=== PATIENT | female | born 1950 | race Caucasian/White ===

== ENCOUNTER 2016-12-11 16:37 | Inpatient (IN) | payer OTHER ==
[~2016-12-11] VITALS: Ht 172.7 cm; Wt 64.9 kg
[2016-12-11 16:49] VITALS: BP_SYST 96
[2016-12-11] MEDS ORDERED: AMOXICILLIN/CLAVULANATE POTASSIUM 875 MG TABLET PO ONE (17:30)
[2016-12-11] MEDS ORDERED: BACITRACIN 1 GM OINT TP ONE ×2 (17:30→19:35)
[2016-12-11] MEDS ORDERED: MORPHINE 4 MG/ML INJ. SYRINGE IVP ONE (18:15)
[2016-12-11] MEDS ORDERED: AMPICILLIN SODIUM/SULBACTAM NA 3 GM in NS 100 ML IV ONE (18:15)
[2016-12-11] MEDS ORDERED: DIPHENHYDRAMINE INJ 50 MG/ML VIAL IVP ONE (18:15)
[2016-12-11 18:31] LABS: BASOPHILS % (AUTO) 0.8 % (0.0-2.0); EOSINOPHILS # (AUTO) 0.1 K/uL (0.0-0.4); EOSINOPHILS % (AUTO) 1.3 % (0.0-4.0); HEMATOCRIT 39.1 % (36-48); HEMOGLOBIN 12.8 g/dL (12.0-16.0); LYMPHOCYTES # (AUTO) 1.3 K/uL (1.0-5.5); LYMPHOCYTES % (AUTO) 25.2 % (20.5-51.5); MEAN CORPUSCULAR HEMOGLOBIN 31 pg (27-31); MEAN CORPUSCULAR HGB CONC 33 % (32-36); MEAN CORPUSCULAR VOLUME 96 fL (79.0-98.0); MONOCYTES # (AUTO) 0.4 K/uL (0.0-1.0); MONOCYTES % (AUTO) 7.6 % (1.7-9.3); NEUTROPHILS # (AUTO) 3.4 K/uL (1.8-7.7); NEUTROPHILS % (AUTO) 65.1 % (40.0-70.0); PLATELET COUNT (AUTO) 371 K/uL (130-430); RED BLOOD CELL COUNT(AUTO) 4.08 MIL/uL (4.2-6.2); RED CELL DISTRIBUTION WIDTH 12.8 % (9.0-15.0); WHITE BLOOD COUNT (AUTO) 5.2 K/uL (4.8-10.8)
[2016-12-11 18:43] LABS: CALCIUM 8.4 mg/dL (8.4-11.0); CREATININE 0.82 mg/dL (0.55-1.30); POTASSIUM 3.3 mmol/L (3.5-5.1)
[2016-12-11 18:48] LABS: ALBUMIN 3.5 g/dL (3.4-4.8); TOTAL BILIRUBIN 0.3 mg/dL (0.0-1.0)
[2016-12-11] MEDS ORDERED: ACETAMINOPHEN 325 MG TABLET PO PRN (19:15)
[2016-12-11] MEDS ORDERED: ONDANSETRON HCL 4 MG/2 ML VIAL IVP PRN (19:15)
[2016-12-11] MEDS ORDERED: AMPICILLIN SODIUM/SULBACTAM NA 3 GM VIAL ONE (19:16)
[2016-12-11] MEDS ORDERED: TEMA30CA5 PO (19:19)
[2016-12-11] MEDS ORDERED: ALPR2TAB2 PO (19:20)
[2016-12-11] MEDS ORDERED: amlodipine PO (19:20)
[2016-12-11 20:21] VITALS: BP_SYST 111
[2016-12-11 20:44] LABS: FREE T4 (FREE THYROXINE) 0.7 ng/dL (0.6-1.6); PHOSPHORUS 3.6 mg/dL (2.7-4.5); THYROID STIMULATING HORMONE 0.25 uIu/mL (0.34-4.82)
[2016-12-11] MEDS: DOCUSATE SODIUM 100 MG CAPSULE PO SCH (21:00)
[2016-12-11] MEDS ORDERED: BECL8.7A5 INH (21:12)
[2016-12-11] MEDS ORDERED: UMEC1BLS IH (21:12)
[2016-12-11] MEDS ORDERED: HYDR-1189 PO (21:12)
[2016-12-11] MEDS ORDERED: DIPH25CA83 PO (21:12)
[2016-12-11] MEDS ORDERED: ALPR1TAB2 PO (21:12)
[2016-12-11] MEDS ORDERED: ALBMDI INH (21:12)
[2016-12-11] MEDS ORDERED: GABA-531 PO (21:12)
[2016-12-11] MEDS ORDERED: NOR10 PO (21:12)
[2016-12-11] MEDS: NACL 0.9% 1,000 ML IV SCH (21:52)
[2016-12-11] MEDS: TEMAZEPAM 15 MG CAPSULE PO SCH (22:45)
[2016-12-12] MEDS ORDERED: TEMAZEPAM 15 MG CAPSULE PO ONE
[2016-12-12 00:38] VITALS: BP_SYST 105
[2016-12-12 05:01] VITALS: BP_SYST 143
[2016-12-12 06:51] LABS: ALBUMIN 3.2 g/dL (3.4-4.8); CALCIUM 8.2 mg/dL (8.4-11.0); CREATININE 0.85 mg/dL (0.55-1.30); POTASSIUM 3.9 mmol/L (3.5-5.1); TOTAL BILIRUBIN 0.4 mg/dL (0.0-1.0)
[2016-12-12 07:30] LABS: BASOPHILS % (AUTO) 0.3 % (0.0-2.0); EOSINOPHILS # (AUTO) 0.1 K/uL (0.0-0.4); EOSINOPHILS % (AUTO) 1.6 % (0.0-4.0); HEMATOCRIT 34.4 % (36-48); HEMOGLOBIN 11.6 g/dL (12.0-16.0); LYMPHOCYTES # (AUTO) 1.8 K/uL (1.0-5.5); MEAN CORPUSCULAR HEMOGLOBIN 33 pg (27-31); MEAN CORPUSCULAR HGB CONC 34 % (32-36); MEAN CORPUSCULAR VOLUME 96 fL (79.0-98.0); MONOCYTES # (AUTO) 0.5 K/uL (0.0-1.0); MONOCYTES % (AUTO) 9.1 % (1.7-9.3); NEUTROPHILS # (AUTO) 2.8 K/uL (1.8-7.7); PLATELET COUNT (AUTO) 324 K/uL (130-430); RED BLOOD CELL COUNT(AUTO) 3.59 MIL/uL (4.2-6.2); RED CELL DISTRIBUTION WIDTH 12.7 % (9.0-15.0); WHITE BLOOD COUNT (AUTO) 5.2 K/uL (4.8-10.8)
[2016-12-12 07:32] VITALS: BP_SYST 109
[2016-12-12] MEDS: GABAPENTIN 300 MG CAPSULE PO SCH ×3 (08:24→20:39)
[2016-12-12] MEDS: DOCUSATE SODIUM 100 MG CAPSULE PO SCH ×2 (08:24→20:39)
[2016-12-12] MEDS: ALPRAZolam 0.25 MG TABLET PO SCH ×2 (08:25→20:41)
[2016-12-12 12:56] VITALS: BP_SYST 94
[2016-12-12] MEDS: NACL 0.9% 1,000 ML IV SCH (13:08)
[2016-12-12] MEDS: MORPHINE 2 MG/ML INJ. SYRINGE IVP PRN (13:09)
[2016-12-12 13:53] LABS: BILIRUBIN,URINE NEGATIVE (NEGATIVE); BLOOD, URINE NEGATIVE (NEGATIVE); CLARITY/URINE CLEAR (CLEAR); COLOR,URINE YELLOW (YELLOW); GLUCOSE,URINE NEGATIVE (NEGATIVE); KETONES,URINE NEGATIVE (NEGATIVE); LEUKOCYTE ESTERASE ,URINE 1+ (NEGATIVE); NITRITE, URINE NEGATIVE (NEGATIVE); PH,URINE 6.5 (5.0-8.0); PROTEIN URINE NEGATIVE (NEGATIVE)
[2016-12-12 14:32] LABS: BACTERIA,URINE FEW /HPF (None Seen); RBC,URINE 0-3 /HPF (0-3)
[2016-12-12 14:33] LABS: MUCUS,URINE 1+ /LPF (None Seen)
[2016-12-12 16:09] VITALS: BP_SYST 119
[2016-12-12] MEDS: amLODIPine BESYLATE 10 MG TABLET PO SCH (20:39)
[2016-12-12] MEDS: TEMAZEPAM 15 MG CAPSULE PO SCH (20:40)
[2016-12-13] VITALS (7 sets, daily range): BP systolic 114–139
[2016-12-13] MEDS: AMPICILLIN SODIUM/SULBACTAM NA 3 GM in NS 100 ML IV SCH ×4 (00:19→17:51)
[2016-12-13] MEDS: NACL 0.9% 1,000 ML IV SCH ×2 (04:30→12:15)
[2016-12-13] MEDS: MORPHINE 2 MG/ML INJ. SYRINGE IVP PRN ×2 (05:46→10:17)
[2016-12-13 06:07] LABS: HEMOGLOBIN A1C 5.3 % (4.8-5.6)
[2016-12-13 08:06] LABS: T4 (THYROXINE) 7.9 ug/dL (4.5-12.0)
[2016-12-13] MEDS: FUROSEMIDE 20 MG/2 ML VIAL IVP SCH (09:00)
[2016-12-13] MEDS: GABAPENTIN 300 MG CAPSULE PO SCH ×3 (09:01→21:38)
[2016-12-13] MEDS: ALPRAZolam 0.25 MG TABLET PO SCH ×2 (09:01→21:38)
[2016-12-13] MEDS: DOCUSATE SODIUM 100 MG CAPSULE PO SCH ×2 (09:01→21:38)
[2016-12-13] MEDS ORDERED: ALBUTEROL MDI INHALATION 8 GM INH INH PRN (16:15)
[2016-12-13] MEDS ORDERED: BECLOMETHASONE INH PRN (16:15)
[2016-12-13] MEDS ORDERED: ALBUTEROL SULFATE 0.083% 2.5 MG/3 ML VIAL.NEB INH PRN (18:45)
[2016-12-13] MEDS: TEMAZEPAM 15 MG CAPSULE PO SCH (21:37)
[2016-12-13] MEDS: amLODIPine BESYLATE 10 MG TABLET PO SCH (21:38)
[2016-12-14] VITALS: BP_SYST 125
[2016-12-14 04:09] VITALS: BP_SYST 131
[2016-12-14] MEDS: AMPICILLIN SODIUM/SULBACTAM NA 3 GM in NS 100 ML IV SCH ×4 (05:21→12:19)
[2016-12-14] MEDS: NACL 0.9% 1,000 ML IV SCH (05:26)
[2016-12-14 08:06] VITALS: BP_SYST 129
[2016-12-14] MEDS ORDERED: AMOX-426 PO (08:26)
[2016-12-14] MEDS ORDERED: FLUTICASONE FUROATE 200 MCG BLST.W.DEV INH SCH (09:00)
[2016-12-14] MEDS: DOCUSATE SODIUM 100 MG CAPSULE PO SCH (09:24)
[2016-12-14] MEDS: GABAPENTIN 300 MG CAPSULE PO SCH (09:24)
[2016-12-14] MEDS: ALPRAZolam 0.25 MG TABLET PO SCH (09:24)
[2016-12-14] MEDS: FUROSEMIDE 20 MG/2 ML VIAL IVP SCH (09:25)
[2016-12-14 12:44] VITALS: BP_SYST 109
[2016-12-14 16:34] VITALS: BP_SYST 117
== END 2016-12-14 15:04 | disposition home or self-care (01) | DRG 384 ==
LOC: SED 16:37 → STU 19:10 → SMU 19:57
PROVIDERS: ADMIT Family Medicine; ATTEND Family Medicine
DX: S51.851A Open bite of right forearm, initial encounter (principal); E44.0 Moderate protein-calorie malnutrition; G62.9 Polyneuropathy, unspecified; E83.51 Hypocalcemia; L03.114 Cellulitis of left upper limb; I10 Essential (primary) hypertension; N39.0 Urinary tract infection, site not specified; S51.852A Open bite of left forearm, initial encounter; L03.113 Cellulitis of right upper limb; F41.9 Anxiety disorder, unspecified; G47.00 Insomnia, unspecified; Z90.49 Acquired absence of other specified parts of digestive tract; Z98.51 Tubal ligation status; W55.01XA Bitten by cat, initial encounter; Y93.89 Activity, other specified; Y92.89 Other specified places as the place of occurrence of the external cause; Y99.8 Other external cause status; Z68.21 Body mass index [BMI] 21.0-21.9, adult
CPT/HCPCS: 36415; 73090; 80053; 80061; 81000-TC; 82150-TC; 83036; 83605; 83690-TC; 83735-TC; 83880; 84100-TC; 84436; 84439; 84443-TC; 84479; 85025; 87040-TC; 87086; 93306; 94760; 96365; 96375; 99285; J0295; J1200; J1940; J2270; J7030; J7050

== ENCOUNTER 2017-01-13 16:44 | Emergency (ER) | payer OTHER ==
[~2017-01-13] VITALS: Ht 172.7 cm; Wt 68.0 kg
[~2017-01-13 16:44] MED LIST: ALBMDI INH; ALPR1TAB2 PO; ALPR2TAB2 PO; AMOX-426 PO; BECL8.7A5 INH; DIPH25CA83 PO; GABA-531 PO; HYDR-1189 PO; NOR10 PO; TEMA30CA5 PO; UMEC1BLS IH; amlodipine PO
[2017-01-13 16:53] VITALS: BP_SYST 106
[2017-01-13] MEDS ORDERED: HYDROmorphone 1 MG INJ. 1 MG/ML AMPUL IM ONE (17:15)
[2017-01-13 17:53] VITALS: BP_SYST 110
== END 2017-01-13 17:53 | disposition home or self-care (01) ==
LOC: SED 16:44
DX: M54.30 Sciatica, unspecified side (principal); J44.9 Chronic obstructive pulmonary disease, unspecified; I10 Essential (primary) hypertension; F41.9 Anxiety disorder, unspecified; Z98.51 Tubal ligation status; Z90.49 Acquired absence of other specified parts of digestive tract; Z79.899 Other long term (current) drug therapy; Z87.891 Personal history of nicotine dependence
CPT/HCPCS: 96372; 99283; J1170

== ENCOUNTER 2017-02-02 13:30 | Emergency (ER) | payer OTHER ==
[~2017-02-02] VITALS: Ht 172.7 cm; Wt 68.0 kg
[2017-02-02 13:43] VITALS: BP_SYST 103
[2017-02-02] MEDS ORDERED: MORPHINE 4 MG/ML INJ. SYRINGE IM ONE (14:00)
[2017-02-02] MEDS ORDERED: KETOROLAC TROMETHAMINE 30 MG VIAL IM ONE (14:00)
[2017-02-02] MEDS ORDERED: MORPHINE SULFATE 10 MG/ML VIAL ONE (14:00)
[2017-02-02] MEDS: ONDANSETRON 4 MG ODT TAB PO ONE (14:11)
[2017-02-02] MEDS: MORPHINE 4 MG/ML INJ. SYRINGE IVP ONE (14:11)
[2017-02-02] MEDS: KETOROLAC TROMETHAMINE 30 MG VIAL IVP ONE (14:29)
[2017-02-02 14:45] VITALS: BP_SYST 138
[2017-02-02 15:57] LABS: BILIRUBIN,URINE NEGATIVE (NEGATIVE); BLOOD, URINE 3+ (NEGATIVE); CLARITY/URINE SL HAZY (CLEAR); COLOR,URINE YELLOW (YELLOW); GLUCOSE,URINE NEGATIVE (NEGATIVE); KETONES,URINE 1+ (NEGATIVE); LEUKOCYTE ESTERASE ,URINE TRACE (NEGATIVE); NITRITE, URINE NEGATIVE (NEGATIVE); PROTEIN URINE NEGATIVE (NEGATIVE); UROBILINOGEN,URINE 0.2 (0.2-1.0)
[2017-02-02 16:10] LABS: BACTERIA,URINE FEW /HPF (None Seen)
[2017-02-02 16:11] LABS: MUCUS,URINE 2+ /LPF (None Seen)
== END 2017-02-02 14:45 | disposition home or self-care (01) ==
LOC: SED 13:30
DX: M54.31 Sciatica, right side (principal); J44.9 Chronic obstructive pulmonary disease, unspecified; I10 Essential (primary) hypertension; F41.9 Anxiety disorder, unspecified; Z79.899 Other long term (current) drug therapy
CPT/HCPCS: 81000; 87086; 96374; 96375; 99284; J1885; J2270; Q0162

== ENCOUNTER 2017-05-26 15:32 | Emergency (ER) | payer OTHER, MEDICAID ==
[~2017-05-26] VITALS: Ht 172.7 cm; Wt 71.7 kg
[2017-05-26 15:36] VITALS: BP_SYST 115
[2017-05-26] MEDS ORDERED: ALPRAZolam 0.25 MG TABLET PO ONE (17:00)
== END 2017-05-26 19:00 | disposition home or self-care (01) ==
LOC: SED 15:32
DX: F41.9 Anxiety disorder, unspecified (principal); M54.2 Cervicalgia; J44.9 Chronic obstructive pulmonary disease, unspecified; I10 Essential (primary) hypertension; F17.200 Nicotine dependence, unspecified, uncomplicated; Z79.899 Other long term (current) drug therapy
CPT/HCPCS: 99283